=== PATIENT | male | born 1990 | race Caucasian/White ===

== ENCOUNTER 2019-10-04 03:52 | Outpatient (CLI) | payer MEDICAID, SELFPAY ==
--- NOTE | 2019-10-04 07:45 | RT.EKG_ITS ---
APPROVED REPORT Exam: Resting ECG Patient Location: O HR:76 bpm ECG Measurements Heart Rate 76 AXIS MN 140 P 65 QRSd 87 QRS 72 QT 397 T 51 QTc 448 Conclusion Sinus rhythm...normal P axis, V-rate 60- 99 Normal Electrocardiogram
== END 2019-10-04 04:12 ==
PROVIDERS: Visit Provider Family Medicine
DX: F11.20 Opioid dependence, uncomplicated (principal)
CPT/HCPCS: 93005; 93010

== ENCOUNTER 2024-02-23 07:58 | Outpatient (CLI) | payer MEDICAID, SELFPAY ==
--- NOTE | 2024-02-23 07:45 | RT.EKG_ITS ---
APPROVED REPORT Exam: Resting ECG Reason for Exam: HIGH RISK MEDICATION USE Patient Location: O HR:82 bpm ECG Measurements Heart Rate 82 AXIS OK 146 P 76 QRSd 88 QRS 63 QT 361 T 64 QTc 422 Conclusion Sinus rhythm...normal P axis, V-rate 50- 99 Normal Electrocardiogram
== END 2024-02-23 07:59 | disposition home or self-care (01) ==
PROVIDERS: Visit Provider Family Medicine
DX: Z79.899 Other long term (current) drug therapy (principal)
CPT/HCPCS: 93005; 93010